=== PATIENT | female | born 1990 | race Caucasian/White ===

== ENCOUNTER 2024-09-25 14:34 | Emergency (ER) | payer OTHER, SELFPAY ==
[2024-09-25 14:34] VITALS: BMI 22.8
[2024-09-25 14:36] VITALS: BP 96/66
[2024-09-25 16:16] VITALS: BP 115/71
[2024-09-25 16:17] VITALS: BP 115/71
[2024-09-25] MEDS: BENTYL 20 MG IM (16:44)
[2024-09-25] MEDS: ZOFRAN 4 MG IV ×2 (16:44→18:30)
[2024-09-25] MEDS: NSS 1000 IV (16:45)
[2024-09-25 16:58] LABS: % Basophils 0.2 % (0-2); % Eosinophils 0.2 % (0-6); % Immature Granulocytes 0.3 % (0-0.5); % Lymphocytes 2.5 % (20.5-51.1); % Monocytes 3.9 % (1.7-9.3); % Neutrophils 92.9 % (42.2-75.2); Absolute Lymphocytes 0.3 10^3/uL (1.2-3.4); Absolute Monocytes 0.5 10^3/uL (0.1-0.6); Absolute Neutrophils 11.4 10^3/uL (1.4-6.5); Hemoglobin 13.8 g/dL (12.0-16.0); Mean Corp Hgb Conc. 33.7 g/dL (33.0-37.0); Mean Corpuscular Hgb 29.6 pg (27.0-31.0); Mean Platelet Volume 10.1 fL (7.4-10.4); Nucleated Red Blood Cells % 0 %; Platelet Count 215 10^3/uL (130-400); Red Blood Cell Count 4.66 10^6/uL (4.20-5.40); Red Cell Dist. Width 12.3 % (11.5-14.5); White Blood Cell Count 12.2 10^3/uL (4.8-10.8)
[2024-09-25 17:07] LABS: HCG, Serum Qualitative Screen Negative
[2024-09-25 17:10] LABS: ALT (SGPT) 12 U/L (0-35); AST (SGOT) 19 U/L (14-36); Albumin 4.3 g/dl (3.5-5.0); Alkaline Phosphatase 50 U/L (38-126); Blood Urea Nitrogen 14 mg/dl (7-17); Calcium 8.9 mg/dl (8.4-10.2); Carbon Dioxide 23 mmol/L (22-30); Chloride 105 mmol/L (98-107); Estimated Creatinine Clearance 77 ml/min; Glucose 105 mg/dl (70-99); Sodium 139 mmol/L (135-145); Total Bilirubin 0.7 mg/dl (0.2-1.3); Total Protein 6.8 g/dl (6.3-8.2); eGFR > 60.00
--- NOTE | 2024-09-25 18:19 | ED.GENMED ---
History of Present Illness
General
Chief Complaint: Abdominal Symptoms
Source: patient
Exam Limitations: none
Time Seen by Provider: 09/25/24 15:49
Nursing documentation reviewed up to this point in time: agreed with
History of Present Illness
History of Present Illness:
34-year-old female presenting to the emergency department today with concerns of nausea vomiting and diarrhea as well as abdominal discomfort since last night her 1-year-old child also had similar symptoms a few days ago. Was seen in urgent care
sent by EMS due to slightly elevated white count 11.8 and tachycardia. She denies any chest pain shortness of breath or fevers.
Review of Systems
Review of Systems
Allergies reviewed?: Yes
All Other Systems: ROS reviewed and negative except as documented in HPI and ROS
Phy Exam
Physical Exam
Physical Exam:
GENERAL: Alert , in no apparent distress
EYE: pupils equal and reactive
NECK: Supple, no significant adenopathy.
ENT: o/p clr, mmm.
CARDIAC: Regular rate and rhythm .
LUNGS: Clear breath sounds bilaterally, no acute respiratory distress, no wheezes/rales/rhonchi
ABDOMEN: Soft, without focal tenderness, no r/g, no cvat
NEUROLOGICAL: Alert and oriented, no focal neuro deficits
SKIN: Warm and dry, skin intact.
MUSCULOSKELETAL: No edema, well perfused.
PSYCH: Normal and appropriate interaction.
Course
Orders/Labs/Results
Orders:
Orders
09/25/24 16:26
Dicyclomine HCl [Bentyl] 20 mg IM NOW STA
Ondansetron Injectable [Zofran] 4 mg IV NOW STA
Test Result ONCE
09/25/24 16:27
0.9% Sodium Chloride 1000 ml [Nss] 1,000 ml IV BOLUS
09/25/24 16:42
Beta Hcg Serum Qualitative Screen [HCG, Serum Qualitative Screen] Urgent
CBC/With Diff [Complete Blood Count/With Diff] Urgent
CMP [Comprehensive Metabolic Panel] Urgent
09/25/24 18:23
Famotidine [Pepcid] 20 mg IV NOW STA
Ondansetron Injectable [Zofran] 4 mg IV NOW STA
09/25/24 18:55
Ondansetron Orally Disint [Zofran Odt (Orally Disintegrating)] 4 mg PO NOW STA
09/25/24 19:08
Ondansetron Orally Disint [Zofran Odt (Orally Disintegrating)] 4 mg .ROUTE .STK-MED ONE
Abnormal Lab Results
09/25/24
16:42
WBC 12.2 H 10^3/uL
(4.8-10.8)
Absolute Neuts (auto) 11.4 H 10^3/uL
(1.4-6.5)
Absolute Lymphs (auto) 0.3 L 10^3/uL
(1.2-3.4)
Neutrophils % 92.9 H %
(42.2-75.2)
Lymphocytes % 2.5 L %
(20.5-51.1)
Glucose 105 H mg/dl
(70-99)
09/25/24 16:42
09/25/24 16:42
Vital Signs
Initial and Last Documented VS:
Initial Vital Signs
Temp Pulse Resp BP Pulse Ox
99.3 F 94 16 96/66 100
09/25/24 14:36 09/25/24 14:36 09/25/24 14:36 09/25/24 14:36 09/25/24 14:36
Last Documented Vital Signs
Temp Pulse Resp BP Pulse Ox
98.5 F 98 18 118/74 98
09/25/24 16:17 09/25/24 18:22 09/25/24 18:22 09/25/24 18:22 09/25/24 18:22
MDM/Problems Addressed
MDM/Problems Addressed:
34-year-old female presenting to the emergency department today with concerns of nausea vomiting diarrhea over the past day or so. Child had similar symptoms a few days ago with mainly diarrhea. On arrival here patient with normal vital signs. In
no obvious distress abdomen soft no focal tenderness. White count is 12.2 otherwise normal labs normal liver function test normal electrolytes. Was given Zofran and Bentyl here. [place] much better was requesting something to drink. Had some aidee
miroslava had some abdominal cramping with this but was able to tolerate it. Was given additional medications for nausea concerning the ongoing nausea here. Otherwise no signs of emergent process stable for outpatient management return precautions given.
*Critical Care Note
Total Time (30-74mins, 75-104mins- exclusive of procedures): Not Applicable
ED Attending Note
-
Portions of this chart may have been created with voice recognition software.� Occasional wrong word or��sound alike� substitutions may have occurred due to the inherent limitations of voice recognition software.
Discharge Plan
Departure
Patient Disposition: Home (Routine Discharge)
Date of Disposition: 09/25/24
Time of Disposition: 18:55
Patient with high blood pressure during this ER visit?: No
Condition: Good
Covid-19: Not Applicable
Discharge Problem:
Abdominal pain, vomiting, and diarrhea
Instructions: [place] Diet, Nausea and Vomiting, Adult (DC)
Prescriptions:
New
ondansetron 4 mg tablet,disintegrating
4 mg PO Q6H PRN (Reason: nausea and vomiting) Qty: 7 0RF
No Action
prenat.vits,jayashree,thq-ptdo-nomem Tablet
1 tab PO Daily
famotidine [Pepcid] 40 mg Tablet
40 mg PO BID
oxycodone-acetaminophen 5-325 mg Tablet
1 tab PO Q4HPRN PRN (Reason: moderate pain) Qty: 10 0RF
ibuprofen 600 mg Tablet
600 mg PO Q6HPRN PRN (Reason: cramps) Qty: 90 0RF
Referrals:
UNKNOWN - PT DOES,NOT KNOW [Family Provider] -
Activity Restrictions/Additional Instructions:
You came to the emergency department today with concerns of symptoms consistent with a stomach bug. Please take prescribed medications and slowly escalate diet over the next few days. Return for any worsening, new or concerning symptoms.
Interventions
Interventions:
*Risk Screen - Suicide Last Done: 09/25/24 14:41
*General Assessment Last Done: 09/25/24 16:13
*Neglect/Abuse Screening Last Done: 09/25/24 14:41
ED- Fall Risk Assessment Last Done: 09/25/24 16:13
*ED COVID-19 Vaccine History Last Done: 09/25/24 16:13
*Nursing Disposition Last Done: 09/25/24 19:05
LP-Ngesqs-Ebakmusnfd Assessment Last Done: 09/25/24 16:12
Discharge Date and Time
Discharge Date/Time: 09/25/24 19:34
Print Language: LITHUANIAN
[2024-09-25 18:22] VITALS: BP 118/74
[2024-09-25] MEDS: PEPCID 20 MG IV (18:30)
[2024-09-25] MEDS: ZOFRAN ODT (ORALLY DISINTEGRATING) 4 MG PO (18:57)
== END 2024-09-25 19:34 | disposition home or self-care (01) ==
LOC: EMR 14:34
PROVIDERS: Physician Assistant; EMERGENCY PHYSICIAN Student in an Organized Health Care Education/Training Program
DX: R11.2 Nausea with vomiting, unspecified (principal); R19.7 Diarrhea, unspecified; R10.9 Unspecified abdominal pain
CPT/HCPCS: 96374; 96375; 96372; 96361; 99284; 80053; 84703; 85025